=== PATIENT | female | born 1970 | race Caucasian/White ===

== ENCOUNTER 2019-02-08 09:59 | Emergency (ER) | payer MEDICAID ==
[2019-02-08 10:10] VITALS: O2SAT 98
--- NOTE | 2019-02-08 10:16 | C.PDOC ---
History Of Present Illness 48 year old female with pmhx of HTN presents to the ED today with complaints of right elbow pain and left knee discomfort for the past 2 days; patient also reports she has been sick with a "cold" for the past 3 days. Patient reports she has been lifting heavy things recently, especially with her right hand. Reports cold symptoms consisting of headache, cough and rhinorrhea. Patient did not go to her PMD 2/2 their having retired and has not secured a new PMD. Denies taking home medications today, chest pain, SOB, nausea, vomiting, diarrhea. <Kristina Pierce - Last Filed: 02/08/19 13:01> History Per: Patient History/Exam Limitations: no limitations Onset/Duration Of Symptoms: Days Current Symptoms Are (Timing): Still Present Severity: Mild Quality: Dull Preceeding Symptoms: None Associated Symptoms: denies: Photophobia, Blurred Vision, Nausea, Extremity Weakness Additional History Per: Family <Kristina Pierce - Last Filed: 02/08/19 13:01> <Manny Hernandez DO - Last Filed: 02/08/19 18:35> Time Seen by Provider: 02/08/19 10:11 Chief Complaint (Nursing): Headache Past Medical History Reviewed: Historical Data, Nursing Documentation, Vital Signs Vital Signs: Last Vital Signs Temp 98.8 F 02/08/19 10:04 Pulse 124 H 02/08/19 10:04 Resp 18 02/08/19 10:04 BP 164/101 H 02/08/19 10:04 Pulse Ox 98 02/08/19 10:04 - Medical History PMH: HTN Family History: States: Unknown Family Hx - Social History Hx Tobacco Use: No Hx Alcohol Use: No Hx Substance Use: No - Immunization History Hx Tetanus Toxoid Vaccination: No Hx Influenza Vaccination: Yes Hx Pneumococcal Vaccination: No <Kristina Pierce - Last Filed: 02/08/19 13:01> Vital Signs: Last Vital Signs Temp 99 F 02/08/19 11:31 Pulse 96 H 02/08/19 13:04 Resp 20 02/08/19 13:04 BP 143/85 02/08/19 13:04 Pulse Ox 98 02/08/19 13:04 <Manny Hernandez DO - Last Filed: 02/08/19 18:35> Review Of Systems Constitutional: Positive for: Malaise Eyes: Negative for: Vision Change ENT: Positive for: Nose Congestion Cardiovascular: Negative for: Chest Pain, Palpitations Respiratory: Positive for: Cough. Negative for: Shortness of Breath, Hemoptysis Gastrointestinal: Negative for: Vomiting, Diarrhea Genitourinary: Negative for: Dysuria Musculoskeletal: Positive for: Other (right elbow, left knee pain) Neurological: Negative for: Weakness, Change in Speech, Altered Mental Status <StanKristina - Last Filed: 02/08/19 13:01> Physical Exam - Physical Exam Appears: Non-toxic, No Acute Distress Skin: Normal Color, Warm, Dry Head: Atraumatic, Normacephalic Eye(s): bilateral: Normal Inspection, EOMI Nose: Normal Oral Mucosa: Moist Throat: Normal, No Erythema, No Exudate Neck: Normal, No Paracervical Tenderness Cardiovascular: Rhythm Regular Respiratory: Normal Breath Sounds, No Rales, No Rhonchi Gastrointestinal/Abdominal: Normal Exam, Bowel Sounds, Soft, No Tenderness, No Distention Extremity: Tenderness (right extensor tendon TTP at lateral epicondyle; left knee TTP along the ) Extremity: Bilateral: Atraumatic, Normal Color And Temperature, Other (right extensor tendon TTP at lateral epicondyle; left knee TTP along the ) Pulses: Right Radial: Normal Neurological/Psych: Oriented x3, Normal Motor, Normal Sensation Gait: Steady <PierceKristina Last Filed: 02/08/19 13:01> ED Course And Treatment - Laboratory Results Result Diagrams: 02/08/19 11:03 02/08/19 11:03 Lab Interpretation: Abnormal Interpretation Of Abnormal: hyperglycemia O2 Sat by Pulse Oximetry: 98 Pulse Ox Interpretation: Normal Progress Note: Resolution of headache Reevaluation Time: 12:53 Reassessment Condition: Improved <StanKristina Last Filed: 02/08/19 13:01> - Laboratory Results Result Diagrams: 02/08/19 11:03 02/08/19 11:03 Lab Results: Total Bilirubin 0.5 mg/dL (0.2-1.3) 02/08/19 11:03 AST 33 U/L (14-36) 02/08/19 11:03 ALT 11 U/L (9-52) 02/08/19 11:03 Alkaline Phosphatase 126 U/L (38-126) 02/08/19 11:03 Total Protein 7.2 g/dL (6.3-8.3) 02/08/19 11:03 Albumin 4.1 g/dL (3.5-5.0) 02/08/19 11:03 Globulin 3.0 gm/dL (2.2-3.9) 02/08/19 11:03 Albumin/Globulin Ratio 1.4 (1.0-2.1) 02/08/19 11:03 Urine Color Yellow (YELLOW) 02/08/19 12:23 Urine Clarity Hazy (Clear) 02/08/19 12:23 Urine pH 6.0 (5.0-8.0) 02/08/19 12:23 Ur Specific [place] 1.011 (1.003-1.030) 02/08/19 12:23 Urine Protein 2+ mg/dL (NEGATIVE) H 02/08/19 12:23 Urine Glucose (UA) Normal mg/dL (Normal) 02/08/19 12:23 Urine Ketones Negative mg/dL (NEGATIVE) 02/08/19 12:23 Urine Blood 2+ (NEGATIVE) H 02/08/19 12:23 Urine Nitrate Negative (NEGATIVE) 02/08/19 12:23 Urine Bilirubin Negative (NEGATIVE) 02/08/19 12:23 Urine Urobilinogen Normal mg/dL (0.2-1.0) 02/08/19 12:23 Ur Leukocyte Esterase Neg [place]/uL (Negative) 02/08/19 12:23 Urine WBC (Auto) 2 /hpf (0-5) 02/08/19 12:23 Urine RBC (Auto) 13 /hpf (0-3) H 02/08/19 12:23 Ur Squamous Epith Cells 12 /hpf (0-5) H 02/08/19 12:23 Urine Bacteria Rare (<OCC) 02/08/19 12:23 <Manny Hernandez DO - Last Filed: 02/08/19 18:35> Medical Decision Making Medical Decision Makin48 year old female with complaints of right elbow and left knee pain, cough and headache CBC CMP UA Patient given home dose Coreg 12.5mg with resolution of headache Glucose 336 Hgb a1c 8.3 UA negative for ketones start pt on metformin 500mg BID counseled patient on new diagnosis and new medication, need for follow up upon discharge <Kristina Pierce - Last Filed: 02/08/19 13:01> Disposition Counseled Patient/Family Regarding: Studies Performed, Diagnosis, Need For Followup, Rx Given - Disposition Disposition Time: 12:55 - POA Present On Arrival: None <Kristina Pierce - Last Filed: 02/08/19 13:01> - Disposition Disposition Time: 12:40 <Mary DOManny - Last Filed: 02/08/19 18:35> - Disposition Referrals: Jeronimo Pennington, [Non-Staff] - Disposition: HOME/ ROUTINE Condition: STABLE Additional Instructions: CISCO ESPARZA, thank you for letting us take care of you today. The emergency medical care you received today was directed at your acute symptoms. If you were prescribed any medication, please fill it and take as directed. It may take several days for your symptoms to resolve. Return to the Emergency Department if your symptoms worsen, do not improve, or if you have any other problems. Please contact your doctor or call one of the physicians/clinics you have been referred to that are listed on the Patient Visit Information form that is included in your discharge packet. Bring any paperwork you were given at discharge with you along with any medications you are taking to your follow up visit. Our treatment cannot replace ongoing medical care by a primary care provider outside of the emergency department. Thank you for allowing the [facility] team to be part of your care today. Follow up with your primary care doctor about your elevated blood sugar in the next 3-4 days. Prescriptions: metFORMIN [glucOPHAGE] 500 mg PO BID #28 tab Instructions: Diabetes Type 2 (DC), The ABCs of Diabetes Forms: [employer] ([place]), Work Excuse - Clinical Impression Clinical Impression: Tendonitis, Diabetes mellitus, new onset, Upper respiratory infection, viral
[2019-02-08 11:12] LABS: BASO % 0.6 % (0.0-2.0); EOS # 0.1 K/uL (0.0-0.7); EOS % 1.4 % (0.0-4.0); HEMOGLOBIN 13.3 g/dL (11.0-16.0); LYMPH # 1.3 K/uL (1.0-4.3); LYMPH % 20.5 % (20.0-40.0); MEAN CELL VOLUME 88.4 fL (81.0-99.0); MEAN CORPUSCULAR HEMOGLOBIN 29.9 pg (27.0-31.0); MEAN CORPUSCULAR HGB CONC 33.8 g/dL (33.0-37.0); MEAN PLATELET VOLUME 7.9 fL (7.2-11.7); MONO # 0.8 K/uL (0.0-0.8); NEUT # 4.2 K/uL (1.8-7.0); NEUT % 65.5 % (50.0-75.0); RBC 4.45 Mil/uL (3.80-5.20); RED CELL DISTRIBUTION WIDTH 13.1 % (11.5-14.5); WHITE BLOOD COUNT 6.4 K/uL (4.8-10.8)
[2019-02-08 11:20] LABS: ALB/GLOB RATIO 1.4 (1.0-2.1); ALBUMIN 4.1 g/dL (3.5-5.0); ALT/SGPT 11 U/L (9-52); AST/SGOT 33 U/L (14-36); BLOOD UREA NITROGEN 13 mg/dL (7-17); CALCIUM 9.7 mg/dl (8.6-10.4); GFR NON-AFRICAN AMERICAN 53
[2019-02-08 11:32] VITALS: TEMP 99
[2019-02-08 12:39] LABS: SQUAMOUS EPITHIAL 12 /hpf (0-5); URINE BACTERIA RARE (<OCC); URINE BILIRUBIN NEGATIVE (NEGATIVE); URINE BLOOD 2+ (NEGATIVE); URINE CLARITY Hazy (Clear); URINE COLOR Yellow (YELLOW); URINE GLUCOSE (UA) NORMAL (Normal); URINE LEUKOCYTE ESTERASE NEG Leu/uL (Negative); URINE PROTEIN 2+ mg/dL (NEGATIVE); URINE UROBILINOGEN NORMAL mg/dL (0.2-1.0)
[2019-02-08 13:05] VITALS: BP 143/85; PULSE 96; RESP 20
== END 2019-02-08 13:13 | disposition home or self-care (01) ==
LOC: C.ER 09:59
DX: E11.9 Type 2 diabetes mellitus without complications (principal); J06.9 Acute upper respiratory infection, unspecified; M77.9 Enthesopathy, unspecified; I10 Essential (primary) hypertension